=== PATIENT | female | born 1965 | race African-American/Black ===

== ENCOUNTER 2019-07-30 16:12 | Emergency (ER) | payer BC ==
[~2019-07-30] VITALS: Ht 165.1 cm; Wt 76.8 kg
[2019-07-30 16:32] VITALS: Ht 165.1 cm; Wt 76.8 kg
[2019-07-30 17:17] LABS: BASOPHILS 0.2 % (0-2); EOSINOPHILS 1.5 % (0-7); HEMOGLOBIN 12.3 g/dL (12-16); LYMPHOCYTES 42.9 % (15-50); MCH 30.4 pg (26.0-34.0); MCHC 34.2 g/dL (31.0-37.0); MCV 89.1 fL (80.0-100.0); MEAN PLATELET VOLUME 10.4 fL (7.4-10.4); MONOCYTES 6.2 % (2-11); NEUTROPHILS 49.2 % (40-80); PLATELET COUNT 271 10x3/uL (130-400); RBC 4.04 10x6/uL (4.00-5.40); RDW 12.3 % (11.5-14.5); WBC 4.5 10x3/uL (4.8-10.8)
[2019-07-30] MEDS ORDERED: NORVASC2.5 MG PO (17:36)
[2019-07-30] MEDS ORDERED: VITAMIN D10000 UNI1 PO (17:37)
[2019-07-30] MEDS ORDERED: FARXIGA10 MG PO (17:37)
[2019-07-30] MEDS ORDERED: SYNTHROID25 MCG PO (17:37)
[2019-07-30 17:40] LABS: APTT 24.6 SECONDS (22.8-39.4); INR 1.11 (0.85-1.17); PROTIME 14.2 SECONDS (11.6-15.0)
[2019-07-30 17:41] LABS: ALBUMIN 3.9 g/dL (3.4-5.0); ALKALINE PHOSPHATASE 61 U/L (30-120); ALT (SGPT) 29 U/L (10-68); BILIRUBIN - TOTAL 0.32 mg/dL (0.2-1.3); CALCIUM 9.1 mg/dL (8.5-10.1); CARBON DIOXIDE 25.8 mmol/L (21.0-32.0); CHLORIDE - SERUM 102 mmol/L (98-107); CKMB 0.2 U/L (0.0-3.6); CREATINE KINASE 47 UL (21-215); CREATININE - SERUM 1.1 mg/dL (0.6-1.3); POTASSIUM - SERUM 3.9 mmol/L (3.5-5.1); PROTEIN - SERUM 7.2 g/dL (6.4-8.2); SODIUM 137 mmol/L (136-145); UREA NITROGEN 14 mg/dL (7-18); eGFR NON AFRICAN AMERICAN 55 mL/min (90-120)
[2019-07-30 17:55] LABS: CALC OSMOLALITY 292 mosm/kg (275-300); GLUCOSE 430 mg/dL (74-106); TROPONIN-I < 0.017 ng/mL (0.000-0.060)
[2019-07-30 18:44] LABS: BILIRUBIN NEGATIVE (NEGATIVE); GLUCOSE 1000 mg/dL (NEGATIVE); KETONE NEGATIVE (NEGATIVE); NITRITE NEGATIVE (NEGATIVE); SPECIFIC GRAVITY 1.015 (1.005-1.020); UROBILINOGEN NORMAL (NORMAL)
[2019-07-30] MEDS ORDERED: IBUPROFEN800 MG PO (18:50)
[2019-07-30] MEDS ORDERED: GLUCOTROL XL 1010 MG PO (18:51)
[2019-07-30 21:27] VITALS: BP 133/77
== END 2019-07-30 21:27 | disposition home or self-care (01) ==
LOC: D.ER 16:12
PROVIDERS: Emergency Medicine
DX: M94.0 Chondrocostal junction syndrome [Tietze] (principal); E11.65 Type 2 diabetes mellitus with hyperglycemia; I10 Essential (primary) hypertension; R07.9 Chest pain, unspecified; Z79.84 Long term (current) use of oral hypoglycemic drugs